=== PATIENT | female | born 1960 | race Caucasian/White ===

== ENCOUNTER 2018-12-20 06:48 | Inpatient (IN) | payer BC ==
[2018-12-20] MEDS ORDERED: NORMAL SALINE 1000 ML 1,000 ML IV ONE ×2 (08:15→11:44)
[2018-12-20] MEDS ORDERED: ONDANSETRON HCL INJ/PF 4 MG/2 ML SDV IV ONE (08:15)
--- NOTE | 2018-12-20 08:21 | ER Document Report ---
ED Medical Screen (RME) - General Chief Complaint: Diarrhea Stated Complaint: DIARRHEA Time Seen by Provider: 12/20/18 08:13 Notes: Patient is a 58-year-old female presents to the emergency department with a chief complaint of diarrhea. Patient states that she was seen by her primary care physician and placed on Flagyl and Cipro for the treatment of diverticulitis. Patient states she did not have any imaging performed on her abdomen but they were treating her like diverticulitis as she has had this in the past. Patient complaint complains of nausea. Patient states that she has over 5 episodes of diarrhea per day with a foul-smelling odor. Patient denies of blood or dark tarry stools. Patient states she has been able to eat in 3 days as this makes the diarrhea worse. Patient denies fever. Patient states that she feels like she has the flu as she has generalized body aches. TRAVEL OUTSIDE OF THE [place] IN LAST 30 DAYS: No Past Medical History - Social History Chew tobacco use (# tins/day): No Frequency of alcohol use: None Drug Abuse: None Renal/ Medical History: Denies: Hx Peritoneal Dialysis Past Surgical History: Reports: Hx Cholecystectomy Physical Exam - Vital signs Vitals: Temp Pulse Resp BP Pulse Ox 98.4 F 88 12 111/66 98 12/20/18 06:57 12/20/18 06:57 12/20/18 06:57 12/20/18 06:57 12/20/18 06:57 Interpretation: Normal - Abdominal Inspection: Normal Distension: No distension Bowel sounds: Hyperactive Tenderness: Tender - LLQ tenderness Course - Re-evaluation Re-evalutation: 12/20/18 08:20 I have greeted and performed a rapid initial assessment of this patient. A comprehensive ED assessment and evaluation of the patient, analysis of test results and completion of the medical decision making process will be conducted by additional ED providers. - Vital Signs Vital signs: Temp Pulse Resp BP Pulse Ox 98.4 F 88 12 111/66 98 12/20/18 06:57 12/20/18 06:57 12/20/18 06:57 12/20/18 06:57 12/20/18 06:57
[2018-12-20 09:22] LABS: ABSOLUTE BASOPHILS # (AUTO) 0.1 10^3/uL (0.0-0.2); ABSOLUTE EOSINOPHILS # (AUTO) 0.1 10^3/uL (0.0-0.6); ABSOLUTE LYMPHOCYTES (AUTO) 1.6 10^3/uL (0.5-4.7); ABSOLUTE MONOCYTES (AUTO) 0.9 10^3/uL (0.1-1.4); ABSOLUTE NEUT (AUTO) 13.6 10^3/uL (1.7-8.2); BASOPHILS % (AUTO) 0.5 % (0-2); EOSINOPHILS % (AUTO) 0.7 % (0-6); HEMATOCRIT 39.1 % (36.0-47.0); HEMOGLOBIN 13.3 g/dL (12.0-15.5); LYMPHOCYTES % (AUTO) 9.8 % (13-45); MEAN CORPUSCULAR HEMOGLOBIN 30.8 pg (27.0-33.4); MEAN CORPUSCULAR HGB CONC 34.1 g/dL (32.0-36.0); MEAN CORPUSCULAR VOLUME 91 fl (80-97); MONOCYTES % (AUTO) 5.5 % (3-13); PLATELET COUNT 385 10^3/uL (150-450); RED BLOOD COUNT 4.33 10^6/uL (3.72-5.28); RED CELL DISTRIBUTION WIDTH 14.1 % (11.5-14.0); SEGMENTED NEUTROPHILS % (AUTO) 83.5 % (42-78); TOTAL CELLS COUNTED % (AUTO) 100 %; WHITE BLOOD COUNT 16.3 10^3/uL (4.0-10.5)
[2018-12-20] MEDS ORDERED: FENTANYL CITRATE INJ/PF 100 MCG/2 ML AMPUL IV ONE (09:23)
[2018-12-20 09:27] LABS: APPEARANCE,URINE CLEAR; BILIRUBIN,URINE NEGATIVE (NEGATIVE); COLOR,URINE YELLOW; GLUCOSE, URINE NEGATIVE (NEGATIVE); KETONES,URINE TRACE mg/dL (NEGATIVE); LEUKOCYTE ESTERASE,URINE SMALL (NEGATIVE); NITRITE,URINE NEGATIVE (NEGATIVE); PROTEIN,URINE NEGATIVE (NEGATIVE); UROBILINOGEN,URINE NEGATIVE mg/dL (<2.0)
--- NOTE | 2018-12-20 10:01 | ER Document Report ---
ED General - General Chief Complaint: Diarrhea Stated Complaint: DIARRHEA Time Seen by Provider: 12/20/18 08:13 Notes: 58-year-old lady with diverticulitis 3 weeks ago status post antibiotics presents with diarrhea. Is been getting worse for last 3 weeks and is worse when she eats. Intermittent nausea but no vomiting. Denies abdominal pain or fever. Has not been tested for C. difficile. No foreign travel. No bloody diarrhea. Also complains of a lump on her left buttock that increased in size over the last 3 days and is painful and tender and red. TRAVEL OUTSIDE OF THE [place] IN LAST 30 DAYS: No Past Medical History - Social History Smoking Status: Never Smoker Chew tobacco use (# tins/day): No Frequency of alcohol use: None Drug Abuse: None Family History: None Patient has suicidal ideation: No Patient has homicidal ideation: No Renal/ Medical History: Denies: Hx Peritoneal Dialysis Past Surgical History: Reports: Hx Cholecystectomy Review of Systems - Review of Systems Notes: REVIEW OF SYSTEMS GEN: Denies fever, chills, weight loss ENT: Denies sore throat, nasal discharge, ear pain EYES: Denies blurry vision, eye pain, discharge CV: Denies chest pain, palpitations, edema RESP: Denies cough, shortness of breath, wheezing GI: Denies abdominal pain, nausea, vomiting, diarrhea MSK: Denies joint pain/swelling, edema, SKIN: Buttocks swelling LYMPH: Denies swollen glands/lymph nodes NEURO: Denies headache, focal weakness or numbness, dizziness PSYCH: Denies depression, suicidal or homicidal ideation PHYSICAL EXAMINATION General: No acute distress, well-nourished Head: Atraumatic, normocephalic ENT: Mouth normal, oropharynx moist, no exudates or tonsillar enlargement Eyes: Conjunctiva normal, pupils equal, lids normal Neck: No JVD, supple, no guarding CVS: Normal rate, regular rhythm, no murmurs Resp: No resp distress, equal and normal breath sounds bilaterally GI: Nondistended, soft, no tenderness to palpation, no rebound or guarding. Redness swelling fluctuance and tenderness along the left gluteal ridge ending about 4 7 m from the anus. Under. Ext: No deformities, no edema, normal range of motion in upper and lower ext Back: No CVA or midline TTP Skin: No rash, warm Lymphatic: No lymphadeopathy noted Neuro: Awake, alert. Face symmetric. GCS 15. Physical Exam - Vital signs Vitals: Temp Pulse Resp BP Pulse Ox 98.4 F 88 12 111/66 98 12/20/18 06:57 12/20/18 06:57 12/20/18 06:57 12/20/18 06:57 12/20/18 06:57 Course - Re-evaluation Re-evalutation: 12/20/18 10:00 Ongoing diarrhea and dehydrationhepatic associated versus C. difficile. We will send C. difficile and hydrate and check labs. Buttock swelling likely buttock abscess versus perirectal abscesswe will check CT to delineate. Will give pain medicine and do sepsis work-up although clinically not septic at this time. 12/20/18 11:21 Buttock abscess shows some perirectal stranding per Dr. Arthur radiology. Co nsult to Dr. Glaser for I&D. Kept n.p.o. Also has elevated white count. Getting fluids. Lites and creatinine are normal. No intra-abdominal findings that are concerning other than an incidental angiomyolipoma which she was informed of. I would like to treat her for C. difficile empirically with oral meds but am trying IV Vanco first given that she is n.p.o. and cannot produce a sample. Discussed with Dr. Joshi for admission. - Vital Signs Vital signs: Temp Pulse Resp BP Pulse Ox 98.4 F 88 12 111/66 98 12/20/18 06:57 12/20/18 06:57 12/20/18 06:57 12/20/18 06:57 12/20/18 06:57 - Laboratory Result Diagrams: 12/20/18 08:50 12/20/18 09:50 Laboratory results interpreted by me: 12/20/18 12/20/18 08:50 08:50 WBC 16.3 H RDW 14.1 H Seg Neutrophils % 83.5 H Lymphocytes % 9.8 L Absolute Neutrophils 13.6 H Urine Ketones TRACE H Urine Blood SMALL H Ur Leukocyte Esterase SMALL H - Diagnostic Test Radiology reviewed: Image reviewed, Reports reviewed Discharge - Discharge Clinical Impression: Antibiotic-associated diarrhea, Perirectal abscess Clinical Impression: (Ruled Out): Type 1 diabetes mellitus with hypoglycemia Condition: Good Disposition: ADMITTED INPATIENT Admitting Provider: Betty (Hospitalist) Unit Admitted: Medical Floor Additional Instructions: Your blood sugars been running low we did not find a direct cause or emergency because of this. 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 Please contact him today to discuss adjusting your insulin regimen. Until then, turn your pump off.
[2018-12-20 10:19] LABS: ALANINE AMINOTRANSFERASE 13 U/L (9-52); ALBUMIN 3.6 g/dL (3.5-5.0); ALKALINE PHOSPHATASE 61 U/L (38-126); ANION GAP 8 (5-19); ASPARTATE AMINO TRANSFERASE 14 U/L (14-36); BILIRUBIN,DIRECT 0.3 mg/dL (0.0-0.4); BLOOD UREA NITROGEN 8 mg/dL (7-20); CALCIUM 8.9 mg/dL (8.4-10.2); CARBON DIOXIDE 25 mmol/L (22-30); CHLORIDE 106 mmol/L (98-107); GLUCOSE 106 mg/dL (75-110); LIPASE 32.2 U/L (23-300); SODIUM 139.3 mmol/L (137-145); TOTAL PROTEIN 6.4 g/dL (6.3-8.2)
[2018-12-20] MEDS ORDERED: VANCOMYCIN HCL INJ 1000 MG VIAL IV ONE (11:18)
[2018-12-20] MEDS ORDERED: METRONIDAZOLE 500 MG/NS RTU 500 MG/100 ML RTUPB IV ONE (11:18)
--- NOTE | 2018-12-20 11:28 | RADIOLOGY REPORT (SQ) ---
EXAM DESCRIPTION: CT ABD/PELVIS WITH IV ONLY COMPLETED DATE/TIME: 12/20/2018 10:59 am REASON FOR STUDY: Copious diarrhea, buttock abscess/perirectal? COMPARISON: MRCP 08/19/2015 CT abdomen pelvis 08/16/2015 TECHNIQUE: CT scan of the abdomen and pelvis performed using helical scanning technique with dynamic intravenous contrast injection. No oral contrast. Images reviewed with lung, soft tissue, and bone windows. Reconstructed coronal and sagittal MPR images reviewed. Delayed images for evaluation of the urinary system also acquired. All images stored on PACS. All CT scanners at this facility use dose modulation, iterative reconstruction, and/or weight based d osing when appropriate to reduce radiation dose to as low as reasonably achievable (ALARA). [facility]: Dose Right [facility]: CareDose [facility]: Dose Right [facility]: Teradose 4D [facility]: eTruck CONTRAST TYPE AND DOSE: contrast/concentration: Isovue 350.00 mg/ml; Total Contrast Delivered: 72.0 ml; Total Saline Delivered: 66.0 ml RENAL FUNCTION: Creatinine 0.7 RADIATION DOSE: CT Rad equipment meets quality standard of care and radiation dose reduction techniq ues were employed. CTDIvol: 5.9 - 8.4 mGy. DLP: 803 mGy-cm.. LIMITATIONS: None. FINDINGS: There is left-sided buttock cellulitis with skin thickening and inflammation along the sub cutaneous fat and skin, at the left infra gluteal fold, extending into left perineal fat. On series series 5 image 84, a 2 cm area of increased density of the perineal fat is present just to the left of the anus, which could be an early small abscess. No significant extension of inflammation into th e deep pelvic spaces along the left ischiorectal fossa. These findings were discussed with Dr. Matt mooney in the emergency room. LOWER CHEST: No significant findings. No nodules or infiltrates. LIVER: Normal size. No masses. No dilated ducts. SPLEEN: Normal size. No focal lesions. PANCREAS: No masses. No significant calcifications. No adjacent inflammation or peripancreatic fluid collections. Pancreatic duct not dilated. GALLBLADDER: Surgically absent ADRENAL GLANDS: Right adrenal gland unremarkable. Left-sided 5 x 3.5 cm adrenal mass containing fat and calcifications likely in angio myelolipoma. This is slightly increased in size compared to 2016 where it measured 4.7 x 3.3 cm in size. RIGHT KIDNEY AND URETER: No solid masses. No significant calcifications. No hydronephrosis or hyd roureter. LEFT KIDNEY AND URETER: No solid masses. No significant calcifications. No hydronephrosis or hydr oureter. AORTA AND VESSELS: No aneurysm. No dissection. Renal arteries, SMA, celiac without stenosis. RETROPERITONEUM: No retroperitoneal adenopathy, hemorrhage or masses. BOWEL AND PERITONEAL CAVITY: No oral contrast. No CT evidence of bowel obstruction or free intraperi toneal air or fluid. APPENDIX: Normal appendix axial images 42-47 PELVIS: No mass. No free fluid. Normal bladder. Normal size uterus and ovaries ABDOMINAL WALL: No masses. No hernias. BONES: No significant or acute findings. OTHER: No other significant finding. IMPRESSION: Left gluteal cellulitis with 2 cm focus of inflammation/infection along the left perirec carmen region. 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
[2018-12-20] MEDS ORDERED: DEXTROSE 40% GEL 15 GM TUBE PO PRN ×2 (11:55)
[2018-12-20] MEDS ORDERED: DEXTROSE 50%-WATER 25 GM/50 ML DISP.SYRIN IV PRN ×2 (11:55)
[2018-12-20] MEDS ORDERED: GLUCAGON,HUMAN RECOMB 1 MG INJ IM PRN (11:55)
--- NOTE | 2018-12-20 11:59 | PDOC CONSULTATION ---
Consultation Consult Date: 12/20/18 Provider Consulted: LONG WHITMORE Consult reason:: Cellulitis left buttock History of Present Illness Admission Date/PCP: 12/20/18 11:26 History of Present Illness: LISA ARELLANO is a 58 year old female c/o left buttock pains 2 days ago. Denies fever/chills. History of intermittent LLQ pains and given antibiotics by PMD 3 weeks ago whichich she completed last week. Now has diarrhea. Being work-up for C-Diff. Past Surgical History Past Surgical History: Reports: Cholecystectomy Social History Smoking Status: Never Smoker Family History Family History: None Parental Family History Reviewed: Yes Children Family History Reviewed: No Sibling(s) Family History Reviewed.: No Review of Systems Constitutional: PRESENT: as per HPI Physical Exam Vital Signs: Temp Pulse Resp BP Pulse Ox 98.4 F 88 12 111/66 98 12/20/18 06:57 12/20/18 06:57 12/20/18 06:57 12/20/18 06:57 12/20/18 06:57 Intake & Output 12/19/18 12/20/18 12/21/18 06:59 06:59 06:59 Weight 63.5 kg General appearance: PRESENT: mild distress Head exam: PRESENT: atraumatic Eye exam: PRESENT: conjunctiva pink Mouth exam: PRESENT: moist Neck exam: PRESENT: full ROM Respiratory exam: PRESENT: clear to auscultation jimena Cardiovascular exam: PRESENT: RRR Pulses: PRESENT: normal radial pulses Vascular exam: PRESENT: normal capillary refill GI/Abdominal exam: PRESENT: soft, tenderness - mild tenderness LLQ Rectal exam: PRESENT: deferred, tenderness - reddish tender swelling left inner buttock area. no fluctuation Has a skin mole left buttock about 1.5 cm in diameter non tender and soft. Extremities exam: PRESENT: full ROM Musculoskeletal exam: PRESENT: ambulatory Neurological exam: PRESENT: alert, oriented to person, oriented to place, oriented to time, oriented to situation Psychiatric exam: PRESENT: anxious Skin exam: PRESENT: normal color, warm Results Laboratory Results: 12/20/18 08:50 12/20/18 09:50 12/20/18 12/20/18 12/20/18 08:50 08:50 08:50 WBC 16.3 H RBC 4.33 Hgb 13.3 Hct 39.1 MCV 91 MCH 30.8 MCHC 34.1 RDW 14.1 H Plt Count 385 Seg Neutrophils % 83.5 H Lymphocytes % 9.8 L Monocytes % 5.5 Eosinophils % 0.7 Basophils % 0.5 Absolute Neutrophils 13.6 H Absolute Lymphocytes 1.6 Absolute Monocytes 0.9 Absolute Eosinophils 0.1 Absolute Basophils 0.1 Sodium Cancelled Potassium Cancelled Chloride Cancelled Carbon Dioxide Cancelled Anion Gap Cancelled BUN Cancelled Creatinine Cancelled Est GFR ( Amer) Cancelled Est GFR (Non-Af Amer) Cancelled Glucose Cancelled Calcium Cancelled Total Bilirubin Cancelled AST Cancelled ALT Cancelled Alkaline Phosphatase Cancelled Total Protein Cancelled Albumin Cancelled Lipase Cancelled Urine Color YELLOW Urine Appearance CLEAR Urine pH 6.0 Ur Specific [place] 1.010 Urine Protein NEGATIVE Urine Glucose (UA) NEGATIVE Urine Ketones TRACE H Urine Blood SMALL H Urine Nitrite NEGATIVE Ur Leukocyte Esterase SMALL H Urine WBC (Auto) 7 Urine RBC (Auto) 4 12/20/18 09:50 WBC RBC Hgb Hct MCV MCH MCHC RDW Plt Count Seg Neutrophils % Lymphocytes % Monocytes % Eosinophils % Basophils % Absolute Neutrophils Absolute Lymphocytes Absolute Monocytes Absolute Eosinophils Absolute Basophils Sodium 139.3 Potassium 4.0 Chloride 106 Carbon Dioxide 25 Anion Gap 8 BUN 8 Creatinine 0.72 Est GFR ( Amer) > 60 Est GFR (Non-Af Amer) > 60 Glucose 106 Calcium 8.9 Total Bilirubin 1.0 AST 14 ALT 13 Alkaline Phosphatase 61 Total Protein 6.4 Albumin 3.6 Lipase 32.2 Urine Color Urine Appearance Urine pH Ur Specific [place] Urine Protein Urine Glucose (UA) Urine Ketones Urine Blood Urine Nitrite Ur Leukocyte Esterase Urine WBC (Auto) Urine RBC (Auto) Impressions: Abdomen/Pelvis CT 12/20/18 09:23 IMPRESSION: Left gluteal cellulitis with 2 cm focus of inflammation/infection along the left perirectal region. 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 Keep NPO after midnight
[2018-12-20] MEDS ORDERED: VANCOMYCIN HCL 0 MG in DEXTROSE 5%-WATER 250 ML IV NR (12:00)
--- NOTE | 2018-12-20 12:48 | PDOC H&P ---
History of Present Illness Admission Date/PCP: 12/20/18 11:26 Patient complains of: diarrhea History of Present Illness: LISA ARELLANO is a 58 year old female with no significant past medical history aside from a history of depression and history of diverticulitis a few years ago who presented with persistent diarrhea. Patient says that she has been having watery stools in the past 3 weeks now. She says the stools are watery to mucoid, nonbloody. She says she has been having 4-5 episodes a day. She says they have been worsening in the past 3 days. She also complains of associated crampy abdominal pain. She says she had some nausea and a few episodes of vomiting on the first week but has not had any fever. She says she has been having poor oral intake in the past 2 days. She denies a prior history of C. difficile. Denies recent antibiotic use. She also reports reports that 2 days ago, she noted a tenderness on the left buttock which is been increasingly tender. In the ER, CT of the abdomen pelvis was unremarkable for a left gluteal cellulitis with a possible small early abscess. Surgery was also evaluated the patient and is planning to drain this tomorrow. Past Surgical History Past Surgical History: Reports: Cholecystectomy Social History Smoking Status: Never Smoker Family History Family History: None Parental Family History Reviewed: Yes - No premature CAD Children Family History Reviewed: No Sibling(s) Family History Reviewed.: No Medication/Allergy Allergies/Adverse Reactions: No Known Allergies Allergy (Verified 12/20/18 12:21) Review of Systems All systems: reviewed and no additional remarkable complaints except as stated - As mentioned in HPI Physical Exam Vital Signs: Temp Pulse Resp BP Pulse Ox 98.4 F 88 12 111/66 98 12/20/18 06:57 12/20/18 06:57 12/20/18 06:57 12/20/18 06:57 12/20/18 06:57 Intake & Output 12/19/18 12/20/18 12/21/18 06:59 06:59 06:59 Weight 139 lb 15.896 oz General appearance: PRESENT: no acute distress, well-developed, well-nourished Head exam: PRESENT: atraumatic, normocephalic Eye exam: PRESENT: conjunctiva pink, EOMI, PERRLA. ABSENT: scleral icterus Ear exam: PRESENT: normal external ear exam Mouth exam: PRESENT: moist, tongue midline Neck exam: ABSENT: carotid bruit, JVD, lymphadenopathy, thyromegaly Respiratory exam: PRESENT: clear to auscultation jimena. ABSENT: rales, rhonchi, wheezes Cardiovascular exam: PRESENT: RRR. ABSENT: diastolic murmur, rubs, systolic murmur Pulses: PRESENT: normal dorsalis pedis pul GI/Abdominal exam: PRESENT: normal bowel sounds, soft. ABSENT: distended, guarding, mass, organolmegaly, rebound, tenderness Rectal exam: PRESENT: deferred, other - Note of erythematous and tender confl uent in the left gluteal area Extremities exam: PRESENT: full ROM. ABSENT: calf tenderness, clubbing, pedal edema Neurological exam: PRESENT: alert, awake, oriented to person, oriented to place, oriented to time, oriented to situation, CN II-XII grossly intact. ABSENT: motor sensory deficit Results Laboratory Results: 12/20/18 08:50 12/20/18 09:50 12/20/18 12/20/18 12/20/18 08:50 08:50 08:50 WBC 16.3 H RBC 4.33 Hgb 13.3 Hct 39.1 MCV 91 MCH 30.8 MCHC 34.1 RDW 14.1 H Plt Count 385 Seg Neutrophils % 83.5 H Lymphocytes % 9.8 L Monocytes % 5.5 Eosinophils % 0.7 Basophils % 0.5 Absolute Neutrophils 13.6 H Absolute Lymphocytes 1.6 Absolute Monocytes 0.9 Absolute Eosinophils 0.1 Absolute Basophils 0.1 Sodium Cancelled Potassium Cancelled Chloride Cancelled Carbon Dioxide Cancelled Anion Gap Cancelled BUN Cancelled Creatinine Cancelled Est GFR ( Amer) Cancelled Est GFR (Non-Af Amer) Cancelled Glucose Cancelled Calcium Cancelled Total Bilirubin Cancelled AST Cancelled ALT Cancelled Alkaline Phosphatase Cancelled Total Protein Cancelled Albumin Cancelled Lipase Cancelled Urine Color YELLOW Urine Appearance CLEAR Urine pH 6.0 Ur Specific [place] 1.010 Urine Protein NEGATIVE Urine Glucose (UA) NEGATIVE Urine Ketones TRACE H Urine Blood SMALL H Urine Nitrite NEGATIVE Ur Leukocyte Esterase SMALL H Urine WBC (Auto) 7 Urine RBC (Auto) 4 12/20/18 09:50 WBC RBC Hgb Hct MCV MCH MCHC RDW Plt Count Seg Neutrophils % Lymphocytes % Monocytes % Eosinophils % Basophils % Absolute Neutrophils Absolute Lymphocytes Absolute Monocytes Absolute Eosinophils Absolute Basophils Sodium 139.3 Potassium 4.0 Chloride 106 Carbon Dioxide 25 Anion Gap 8 BUN 8 Creatinine 0.72 Est GFR ( Amer) > 60 Est GFR (Non-Af Amer) > 60 Glucose 106 Calcium 8.9 Total Bilirubin 1.0 AST 14 ALT 13 Alkaline Phosphatase 61 Total Protein 6.4 Albumin 3.6 Lipase 32.2 Urine Color Urine Appearance Urine pH Ur Specific [place] Urine Protein Urine Glucose (UA) Urine Ketones Urine Blood Urine Nitrite Ur Leukocyte Esterase Urine WBC (Auto) Urine RBC (Auto) Impressions: Abdomen/Pelvis CT 12/20/18 09:23 IMPRESSION: Left gluteal cellulitis with 2 cm focus of inflammation/infection along the left perirectal region. 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 This has been going on for 3 weeks now. Will send out for C. difficile testing. Also send out for stool WBC and Gram stain and culture. She has received a liter of fluid bolus in the ER. We will give another bolus and switch to normal saline at 125 cc/h. (2) Cellulitis, gluteal, left Is this a current diagnosis for this admission?: Yes Plan: Start IV vancomycin. Wound cultures. Surgery has plan to proceed with I&D tomorrow morning. N.p.o. postmidnight. (3) Depression Is this a current diagnosis for this admission?: Yes Plan: Resume Paxil once verified. - Time Time Spent with patient: 25-34 minutes
--- NOTE | 2018-12-20 12:50 | ADVANCED CARE ---
- Diagnosis (1) Diarrhea Diagnosis Current: Yes (2) Cellulitis, gluteal, left Diagnosis Current: Yes (3) Depression Diagnosis Current: Yes Resuscitation Status: Full Code Discussion: Patient says that she is a full code and prefers chest compressions, defibrillation and mechanical ventilation if the need arises. When asked about her to DPOA, she says that she is estranged to her family due to multiple issues and does not have a DPOA. She does say that if she is unable to make decisions for herself, she would rather have her brother, Damir in [place] be her medical surrogate decision-maker.
[2018-12-20] MEDS ORDERED: PAROXETINE HCL 20 MG TABLET PO ONE (14:00)
[2018-12-20] MEDS ORDERED: ACETAMINOPHEN 325 MG TABLET PO PRN (16:58)
[2018-12-20] MEDS: NORMAL SALINE 1000 ML 1,000 ML IV PRN (17:33)
[2018-12-20] MEDS: PAROXETINE HCL 20 MG TABLET PO SCH (21:16)
[2018-12-20] MEDS: HEPARIN SOD (PORCINE) 5,000 UNIT/ML 1 ML SYRINGE SUBCUT SCH (21:16)
[2018-12-21] MEDS: NORMAL SALINE 1000 ML 1,000 ML IV PRN ×2 (02:04→22:40)
[2018-12-21] MEDS: HEPARIN SOD (PORCINE) 5,000 UNIT/ML 1 ML SYRINGE SUBCUT SCH ×2 (09:55→22:05)
--- NOTE | 2018-12-21 11:02 | PDOC PROGRESS REPORT ---
Subjective Progress Note for:: 12/21/18 Subjective:: This is a 58 year old female with no significant past medical history aside from a history of depression and history of diverticulitis a few years ago who presented with persistent diarrhea. She was admitted for persistemt diarrhea and was also found to have a left gluteal cellulitis with a possible small early abscess. No acute event overnight. This morning she says she had 3 episodes of loose stools. Abdominal pain has improved. She is going for drainage of a possible small left gluteal abscess today. Reason For Visit: PERSISTENT DIARRHEA,GLUTEAL CELLULITIS Physical Exam Vital Signs: Temp Pulse Resp BP Pulse Ox 98.2 F 49 L 18 113/62 98 12/21/18 07:43 12/21/18 07:43 12/21/18 07:43 12/21/18 07:43 12/21/18 07:43 Intake & Output 12/20/18 12/21/18 12/22/18 06:59 06:59 06:59 Intake Total 3660 Balance 3660 Weight 139 lb 15.896 oz 148 lb 5.938 oz General appearance: PRESENT: no acute distress, well-developed, well-nourished Head exam: PRESENT: atraumatic, normocephalic Eye exam: PRESENT: conjunctiva pink, EOMI, PERRLA. ABSENT: scleral icterus Ear exam: PRESENT: normal external ear exam Mouth exam: PRESENT: moist, tongue midline Neck exam: ABSENT: carotid bruit, JVD, lymphadenopathy, thyromegaly Respiratory exam: PRESENT: clear to auscultation jimena. ABSENT: rales, rhonchi, wheezes Cardiovascular exam: PRESENT: RRR. ABSENT: diastolic murmur, rubs, systolic murmur Pulses: PRESENT: normal dorsalis pedis pul GI/Abdominal exam: PRESENT: normal bowel sounds, soft. ABSENT: distended, guarding, mass, organolmegaly, rebound, tenderness Rectal exam: PRESENT: deferred Extremities exam: PRESENT: full ROM. ABSENT: calf tenderness, clubbing, pedal edema Neurological exam: PRESENT: alert, awake, oriented to person, oriented to place, oriented to time, oriented to situation, CN II-XII grossly intact. ABSENT: motor sensory deficit Results Laboratory Results: 12/20/18 08:50 12/20/18 09:50 12/20/18 16:09 Stool for White Cells NO WBCs SEEN Impressions: Abdomen/Pelvis CT 12/20/18 09:23 IMPRESSION: Left gluteal cellulitis with 2 cm focus of inflammation/infection along the left perirectal region. 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 This has been going on for 3 weeks now. Will send out for C. difficile testing. Also send out for stool WBC and Gram stain and culture. She has received a liter of fluid bolus in the ER. We will give another bolus and switch to normal saline at 125 cc/h. 12/21: She had 3 episodes of loose stools overnight. C. difficile was negative. Stool culture pending. (2) Cellulitis, gluteal, left Is this a current diagnosis for this admission?: Yes Plan: Continue IV vancomycin. She is going for I&D today. (3) Depression Is this a current diagnosis for this admission?: Yes Plan: Stable. Continue Paxil. - Time Time Spent with patient: 15-24 minutes
--- NOTE | 2018-12-21 11:03 | PDOC PROGRESS REPORT ---
Subjective Progress Note for:: 12/21/18 Reason For Visit: PERSISTENT DIARRHEA,GLUTEAL CELLULITIS Physical Exam Vital Signs: Temp Pulse Resp BP Pulse Ox 98.2 F 49 L 18 113/62 98 12/21/18 07:43 12/21/18 07:43 12/21/18 07:43 12/21/18 07:43 12/21/18 07:43 Intake & Output 12/20/18 12/21/18 12/22/18 06:59 06:59 06:59 Intake Total 3660 Balance 3660 Weight 63.5 kg 67.3 kg General appearance: PRESENT: no acute distress, cooperative Respiratory exam: PRESENT: clear to auscultation jimena. ABSENT: chest wall tenderness Cardiovascular exam: PRESENT: RRR Skin exam: PRESENT: other - Approximately 4 cm abscess to the left buttock. It is erythematous, with induration and purulent drainage. Results Laboratory Results: 12/20/18 08:50 12/20/18 09:50 12/20/18 16:09 Stool for White Cells NO WBCs SEEN Impressions: Abdomen/Pelvis CT 12/20/18 09:23 IMPRESSION: Left gluteal cellulitis with 2 cm focus of inflammation/infection along the left perirectal region. 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 It is erythematous and tender. It is draining a small amount of purulent material. I recommended incision and drainage in the operating room today. The patient has agreed to this. Risks/benefits discussed, informed consent obtained, and all questions answered.
[2018-12-21] MEDS ORDERED: FENTANYL CITRATE INJ/PF 100 MCG/2 ML AMPUL ONE (11:04)
[2018-12-21] MEDS ORDERED: MIDAZOLAM 2 MG/2 ML INJ ONE (11:04)
[2018-12-21] MEDS ORDERED: PROPOFOL INJ 200 MG/20 ML VIAL IV ONE (11:04)
[2018-12-21] MEDS ORDERED: MORPHINE SULFATE 10 MG/ML INJ ONE (11:04)
[2018-12-21] MEDS ORDERED: BUPIVACAINE HCL 0.25 % INJ/PF (2.5 MG/1 ML) 30 ML VIAL ONE (11:12)
[2018-12-21] MEDS ORDERED: LIDOCAINE 1% INJ-PF (10 MG/ML) 30 ML SDV ONE (11:12)
[2018-12-21] MEDS ORDERED: PROMETHAZINE HCL INJ 25 MG/1 ML VIAL IV PRN ×2 (11:33)
[2018-12-21] MEDS ORDERED: MORPHINE SULFATE 10 MG/ML INJ IV PRN (11:33)
[2018-12-21] MEDS ORDERED: FENTANYL CITRATE INJ/PF 100 MCG/2 ML AMPUL IV PRN ×3 (11:33)
[2018-12-21] MEDS ORDERED: DIPHENHYDRAMINE HCL 50 MG/ML VIAL IV PRN (11:33)
--- NOTE | 2018-12-21 11:59 | Operative Report ---
Nonrecallable Operative Report DATE OF SURGERY: 12/21/18 PREOPERATIVE DIAGNOSIS: Left buttock abscess POSTOPERATIVE DIAGNOSIS: Same as above OPERATION: 1. Incision and drainage of 4 cm left buttock abscess. 2. Debridement of nonviable skin and fatty soft tissue, sharply and excisionally (3 x 1 cm area). SURGEON: TESSY OLIVEIRA ANESTHESIA: LMAC TISSUE REMOVED OR ALTERED: Wound culture COMPLICATIONS: None apparent ESTIMATED BLOOD LOSS: Minimal PROCEDURE: Drains/implants: 4 x 4 soaked in Betadine. Procedure in detail: After informed consent was obtained, the patient was brought to the operating room and laid in the right lateral decubitus position. The left buttock was prepped and draped in a normal sterile fashion. There was an open area that was actively draining purulent material. This was probed and found to track laterally. The abscess was then laid open. A culture was taken of the deep tissues. There was marginal/necrotic appearing skin and fatty soft tissue in the midportion of the abscess. This was debrided away sharply and excisionally. There was a large cavity with the significant amount of purulent material. This was curetted and irrigated until clear. The wound was then packed with a 4 x 4 soaked in gauze. A dressing was placed, and the procedure was concluded. All sponge, instrument, and needle counts were correct x2. Condition: Stable.
[2018-12-21] MEDS: VANCOMYCIN HCL 750 MG in DEXTROSE 5%-WATER 250 ML IV SCH ×2 (12:53→22:40)
[2018-12-21] MEDS: HYDROCODONE/ACETAMINOPHEN 5-325 MG TABLET PO PRN ×3 (13:24→22:41)
[2018-12-21 15:31] LABS: ABSOLUTE BASOPHILS # (AUTO) 0.1 10^3/uL (0.0-0.2); ABSOLUTE EOSINOPHILS # (AUTO) 0.6 10^3/uL (0.0-0.6); ABSOLUTE LYMPHOCYTES (AUTO) 1.9 10^3/uL (0.5-4.7); ABSOLUTE MONOCYTES (AUTO) 0.7 10^3/uL (0.1-1.4); ABSOLUTE NEUT (AUTO) 6.6 10^3/uL (1.7-8.2); BASOPHILS % (AUTO) 0.7 % (0-2); HEMATOCRIT 31.1 % (36.0-47.0); LYMPHOCYTES % (AUTO) 19.3 % (13-45); MEAN CORPUSCULAR VOLUME 91 fl (80-97); MONOCYTES % (AUTO) 6.7 % (3-13); PLATELET COUNT 253 10^3/uL (150-450); RED BLOOD COUNT 3.41 10^6/uL (3.72-5.28); RED CELL DISTRIBUTION WIDTH 13.7 % (11.5-14.0); SEGMENTED NEUTROPHILS % (AUTO) 67.3 % (42-78); TOTAL CELLS COUNTED % (AUTO) 100 %; WHITE BLOOD COUNT 9.9 10^3/uL (4.0-10.5)
[2018-12-21 15:33] LABS: HEMOGLOBIN 10.6 g/dL (12.0-15.5)
[2018-12-21] MEDS ORDERED: ONDANSETRON HCL INJ/PF 4 MG/2 ML SDV IV PRN (15:41)
[2018-12-21] MEDS: PAROXETINE HCL 20 MG TABLET PO SCH (21:56)
[2018-12-22] MEDS: HYDROCODONE/ACETAMINOPHEN 5-325 MG TABLET PO PRN ×4 (02:43→22:24)
[2018-12-22] MEDS: HEPARIN SOD (PORCINE) 5,000 UNIT/ML 1 ML SYRINGE SUBCUT SCH ×2 (09:33→22:18)
[2018-12-22] MEDS: VANCOMYCIN HCL 750 MG in DEXTROSE 5%-WATER 250 ML IV SCH ×2 (09:41→22:24)
[2018-12-22 10:28] LABS: ABSOLUTE EOSINOPHILS # (AUTO) 0.6 10^3/uL (0.0-0.6); ABSOLUTE LYMPHOCYTES (AUTO) 1.7 10^3/uL (0.5-4.7); ABSOLUTE MONOCYTES (AUTO) 0.7 10^3/uL (0.1-1.4); ABSOLUTE NEUT (AUTO) 6.1 10^3/uL (1.7-8.2); BASOPHILS % (AUTO) 0.5 % (0-2); EOSINOPHILS % (AUTO) 6.6 % (0-6); HEMATOCRIT 31.8 % (36.0-47.0); HEMOGLOBIN 10.8 g/dL (12.0-15.5); LYMPHOCYTES % (AUTO) 18.4 % (13-45); MEAN CORPUSCULAR HEMOGLOBIN 30.7 pg (27.0-33.4); MEAN CORPUSCULAR HGB CONC 34.1 g/dL (32.0-36.0); MEAN CORPUSCULAR VOLUME 90 fl (80-97); MONOCYTES % (AUTO) 7.7 % (3-13); PLATELET COUNT 277 10^3/uL (150-450); RED BLOOD COUNT 3.52 10^6/uL (3.72-5.28); RED CELL DISTRIBUTION WIDTH 13.9 % (11.5-14.0); SEGMENTED NEUTROPHILS % (AUTO) 66.8 % (42-78); TOTAL CELLS COUNTED % (AUTO) 100 %; WHITE BLOOD COUNT 9.1 10^3/uL (4.0-10.5)
[2018-12-22 10:44] LABS: BLOOD UREA NITROGEN 3 mg/dL (7-20); CALCIUM 8.7 mg/dL (8.4-10.2); CARBON DIOXIDE 25 mmol/L (22-30); CHLORIDE 111 mmol/L (98-107); GLUCOSE 87 mg/dL (75-110); POTASSIUM 3.5 mmol/L (3.6-5.0); SODIUM 139.9 mmol/L (137-145)
[2018-12-22 10:48] LABS: ANION GAP 4 (5-19)
--- NOTE | 2018-12-22 11:37 | PDOC PROGRESS REPORT ---
Subjective Progress Note for:: 12/22/18 Subjective:: This is a 58 year old female with no significant past medical history aside from a history of depression and history of diverticulitis a few years ago who presented with persistent diarrhea. She was admitted for persistemt diarrhea and was also found to have a left gluteal cellulitis with a possible small early abscess. 12/21: This morning she says she had 3 episodes of loose stools. Abdominal pain has improved. She is going for drainage of a possible small left gluteal abscess today. 12/22: No acute event overnight. She underwent incision and drainage of her left gluteal abscess yesterday. She says she feels better today. She has not had a bowel movement yet this morning. Stool and wound cultures pending. Reason For Visit: PERSISTENT DIARRHEA,GLUTEAL CELLULITIS Physical Exam Vital Signs: Temp Pulse Resp BP Pulse Ox 98.0 F 50 L 16 100/62 96 12/22/18 08:00 12/22/18 08:00 12/22/18 08:00 12/22/18 08:00 12/22/18 09:25 Intake & Output 12/21/18 12/22/18 12/23/18 06:59 06:59 06:59 Intake Total 3660 2000 Output Total 505 Balance 3660 1495 Weight 148 lb 5.938 oz 149 lb 4.047 oz General appearance: PRESENT: no acute distress, well-developed, well-nourished Head exam: PRESENT: atraumatic, normocephalic Eye exam: PRESENT: conjunctiva pink, EOMI, PERRLA. ABSENT: scleral icterus Ear exam: PRESENT: normal external ear exam Mouth exam: PRESENT: moist, tongue midline Neck exam: ABSENT: carotid bruit, JVD, lymphadenopathy, thyromegaly Respiratory exam: PRESENT: clear to auscultation jimena. ABSENT: rales, rhonchi, wheezes Cardiovascular exam: PRESENT: RRR. ABSENT: diastolic murmur, rubs, systolic murmur Pulses: PRESENT: normal dorsalis pedis pul GI/Abdominal exam: PRESENT: normal bowel sounds, soft. ABSENT: distended, guarding, mass, organolmegaly, rebound, tenderness Rectal exam: PRESENT: deferred, other - dressing in place Extremities exam: PRESENT: full ROM. ABSENT: calf tenderness, clubbing, pedal edema Neurological exam: PRESENT: alert, awake, oriented to person, oriented to place, oriented to time, oriented to situation, CN II-XII grossly intact. ABSENT: motor sensory deficit Results Laboratory Results: 12/22/18 10:04 12/22/18 10:04 12/21/18 12/22/18 12/22/18 15:05 10:04 10:04 WBC 9.9 9.1 RBC 3.41 L 3.52 L Hgb 10.6 L D 10.8 L Hct 31.1 L 31.8 L MCV 91 90 MCH 31.0 30.7 MCHC 34.0 34.1 RDW 13.7 13.9 Plt Count 253 277 Seg Neutrophils % 67.3 66.8 Lymphocytes % 19.3 18.4 Monocytes % 6.7 7.7 Eosinophils % 6.0 6.6 H Basophils % 0.7 0.5 Absolute Neutrophils 6.6 6.1 Absolute Lymphocytes 1.9 1.7 Absolute Monocytes 0.7 0.7 Absolute Eosinophils 0.6 0.6 Absolute Basophils 0.1 0.0 Sodium 139.9 Potassium 3.5 L Chloride 111 H Carbon Dioxide 25 Anion Gap 4 L BUN 3 L Creatinine 0.62 Est GFR ( Amer) > 60 Est GFR (Non-Af Amer) > 60 Glucose 87 Calcium 8.7 Impressions: Abdomen/Pelvis CT 12/20/18 09:23 IMPRESSION: Left gluteal cellulitis with 2 cm focus of inflammation/infection along the left perirectal region. 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 This has been going on for 3 weeks now. Will send out for C. difficile testing. Also send out for stool WBC and Gram stain and culture. She has received a liter of fluid bolus in the ER. We will give another bolus and switch to normal saline at 125 cc/h. 12/21: She had 3 episodes of loose stools overnight. C. difficile was negative. Stool culture pending. 12/22: She has not had a bowel movement yet this morning. Stool and wound cultures pending. This appears to be acute on chronic diarrhea. Patient says that she has been having chronic diarrhea for years and is usually associated after food intake a lthough this has been worsening the past 3 weeks as mentioned. She does have history of having diarrhea from milk, ice cream and other dairy products. She does say that her chronic diarrhea is associated with food intake. Other possibilities of her chronic diarrhea is acquired/adult onset lactose intolerance or irritable bowel syndrome. If stool culture comes back negative, will recommend outpatient follow-up with GI for further work-up and recommendations. (2) Cellulitis, gluteal, left Is this a current diagnosis for this admission?: Yes Plan: Continue IV vancomycin. S/P I&D yesterday 12/21/18. Wound cultures pending. (3) Depression Is this a current diagnosis for this admission?: Yes Plan: Stable. Continue Paxil. - Time Time Spent with patient: 25-34 minutes
[2018-12-22] MEDS ORDERED: DIPHENHYDRAMINE HCL 25 MG CAPSULE PO PRN (21:58)
[2018-12-22 22:04] LABS: VANCOMYCIN,TROUGH 11.6 ug/mL (5.0-20.0)
[2018-12-22] MEDS: PAROXETINE HCL 20 MG TABLET PO SCH (22:24)
--- NOTE | 2018-12-22 23:16 | PDOC PROGRESS REPORT ---
Subjective Progress Note for:: 12/22/18 Reason For Visit: PERSISTENT DIARRHEA,GLUTEAL ABSCESS Physical Exam Vital Signs: Temp Pulse Resp BP Pulse Ox 98.6 F 48 L 17 101/53 L 97 12/22/18 20:00 12/22/18 20:00 12/22/18 20:00 12/22/18 20:00 12/22/18 20:00 Intake & Output 12/21/18 12/22/18 12/23/18 06:59 06:59 06:59 Intake Total 3660 2000 1340 Output Total 505 Balance 3660 1495 1340 Weight 67.3 kg 67.7 kg Results Laboratory Results: 12/22/18 10:04 12/22/18 21:15 12/22/18 12/22/18 12/22/18 10:04 10:04 21:15 WBC 9.1 RBC 3.52 L Hgb 10.8 L Hct 31.8 L MCV 90 MCH 30.7 MCHC 34.1 RDW 13.9 Plt Count 277 Seg Neutrophils % 66.8 Lymphocytes % 18.4 Monocytes % 7.7 Eosinophils % 6.6 H Basophils % 0.5 Absolute Neutrophils 6.1 Absolute Lymphocytes 1.7 Absolute Monocytes 0.7 Absolute Eosinophils 0.6 Absolute Basophils 0.0 Sodium 139.9 Potassium 3.5 L Chloride 111 H Carbon Dioxide 25 Anion Gap 4 L BUN 3 L Creatinine 0.62 0.63 Est GFR ( Amer) > 60 > 60 Est GFR (Non-Af Amer) > 60 > 60 Glucose 87 Calcium 8.7 Impressions: Abdomen/Pelvis CT 12/20/18 09:23 IMPRESSION: Left gluteal cellulitis with 2 cm focus of inflammation/infection along the left perirectal region. 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 The nurses have been changing the dressing. They report that it is doing well. The patient is resting currently. She denies any significant amounts of pain. I will examine the wound tomorrow. Will follow closely with you.
[2018-12-23] MEDS: HEPARIN SOD (PORCINE) 5,000 UNIT/ML 1 ML SYRINGE SUBCUT SCH (09:28)
[2018-12-23] MEDS: SULFAMETHOXAZOLE/TRIMETHOPRIM 800-160 MG TABLET PO SCH ×2 (10:29→17:14)
--- NOTE | 2018-12-23 11:46 | PDOC PROGRESS REPORT ---
Subjective Progress Note for:: 12/23/18 Reason For Visit: PERSISTENT DIARRHEA,GLUTEAL ABSCESS Physical Exam Vital Signs: Temp Pulse Resp BP Pulse Ox 98.1 F 50 L 16 114/68 97 12/23/18 07:50 12/23/18 07:50 12/23/18 07:50 12/23/18 07:50 12/23/18 07:50 Intake & Output 12/22/18 12/23/18 12/24/18 06:59 06:59 06:59 Intake Total 2000 1590 Output Total 505 Balance 1495 1590 Weight 67.7 kg 67.2 kg Results Laboratory Results: 12/22/18 10:04 12/22/18 21:15 12/22/18 21:15 Creatinine 0.63 Est GFR ( Amer) > 60 Est GFR (Non-Af Amer) > 60 12/21/18 11:33 Buttocks - Left Side Abscess Gram Stain - Final 12/21/18 11:33 Buttocks - Left Side Abscess Wound Culture - Final Mrsa (Meth Resis Staph Aureus) No Anaerobic Organisms Impressions: Abdomen/Pelvis CT 12/20/18 09:23 IMPRESSION: Left gluteal cellulitis with 2 cm focus of inflammation/infection along the left perirectal region. 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 Her pain is essentially resolved. Her wound is clean, without excessive purulence. The nurses are changing the dressing. Continue with dressing changes twice daily. The patient is okay to shower. Cultures are growing MRSA. Recommend discharge on Bactrim or clindamycin (to cover community-acquired MRSA). Follow-up at [facility] in 7 to 10 days. I will see the patient again on an as-needed basis. Please renotify with any questions or concerns.
[2018-12-23 12:40] VITALS: BP 133/74
--- NOTE | 2018-12-23 18:01 | PDOC DISCHARGE SUMMARY ---
General - Admit/Disc Date/PCP Admission Date/Primary Care Provider: 12/20/18 14:18 Discharge Date: 12/23/18 - Discharge Diagnosis (1) Diarrhea Is this a current diagnosis for this admission?: Yes (2) Cellulitis, gluteal, left Is this a current diagnosis for this admission?: Yes (3) Depression Is this a current diagnosis for this admission?: Yes - Additional Information Resuscitation Status: Full Code Prescriptions: Sulfamethoxazole/Trimethoprim [Septra-Ds 800-160 mg Tablet] 1 tab PO BID 5 Days #10 tablet Home Medications: Oxycodone HCl/Acetaminophen [Percocet 10-325 mg Tablet] 1 each PO TIDP PRN 12/20/18 Paroxetine HCl [Paxil 20 mg Tablet] 20 mg PO DAILY 12/20/18 Sulfamethoxazole/Trimethoprim [Septra-Ds 800-160 mg Tablet] 1 tab PO BID 5 Days #10 tablet 12/23/18 History of Present Illness History of Present Illness: LISA ARELLANO is a 58 year old female with no significant past medical history aside from a history of depression and history of diverticulitis a few years ago who presented with persistent diarrhea. Patient says that she has been having watery stools in the past 3 weeks now. She says the stools are watery to mucoid, nonbloody. She says she has been having 4-5 episodes a day. She says they have been worsening in the past 3 days. She also complains of associated crampy abdominal pain. She says she had some nausea and a few episodes of vomiting on the first week but has not had any fever. She says she has been having poor oral intake in the past 2 days. She denies a prior history of C. difficile. Denies recent antibiotic use. She also reports reports that 2 days ago, she noted a tenderness on the left buttock which is been increasingly tender. In the ER, CT of the abdomen pelvis was unremarkable for a left gluteal cellulitis with a possible small early abscess. Surgery was also evaluated the patient and is planning to drain this tomorrow. Hospital Course Hospital Course: Patient was admitted for acute on chronic diarrhea. She was started IV fluids. He was also started on vancomycin. She also underwent incision and drainage of her left gluteal abscess on 12/21. Cultures came back positive for MRSA. Her diarrhea did resolve on this admission. She does say that she has had chronic diarrhea and is usually associated with food. She does have history of diarrhea from milk and dairy products. She says she had a colonoscopy 3 years ago which was unremarkable. She was given follow-up with GI for further work- up. He will also be discharged on Bactrim. Physical Exam Vital Signs: Temp Pulse Resp BP Pulse Ox 98.4 F 58 L 17 133/74 H 98 12/23/18 12:04 12/23/18 12:04 12/23/18 12:04 12/23/18 12:04 12/23/18 12:04 Intake & Output 12/22/18 12/23/18 12/24/18 06:59 06:59 06:59 Intake Total 2000 1590 140 Output Total 505 Balance 1495 1590 140 Weight 149 lb 4.047 oz 148 lb 2.41 oz Results Laboratory Results: 12/22/18 10:04 12/22/18 21:15 12/22/18 21:15 Creatinine 0.63 Est GFR ( Amer) > 60 Est GFR (Non-Af Amer) > 60 12/21/18 11:33 Buttocks - Left Side Abscess Gram Stain - Final 12/21/18 11:33 Buttocks - Left Side Abscess Wound Culture - Final Mrsa (Meth Resis Staph Aureus) No Anaerobic Organisms Impressions: Abdomen/Pelvis CT 12/20/18 09:23 IMPRESSION: Left gluteal cellulitis with 2 cm focus of inflammation/infection along the left perirectal region. 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 Anticoagulant therapy for permanect/persistent/paraoxysmal Afib or Aflutter: N/A
== END 2018-12-23 17:54 | disposition home or self-care (01) | DRG 603 ==
LOC: ER 06:48 → INTOOBSV 11:26 → EH 11:26 → INTOOBSV 14:18 → OBSVTOIN 14:18 → 4N 14:34 → OBSVTOIN 12-22 14:18
PROVIDERS: ADMIT Internal Medicine; ATTEND Internal Medicine
PROC: 0H98XZX Drainage of Buttock Skin, External Approach, Diagnostic (ICD-10-PCS; principal; 2018-12-21 10:30)
DX: L02.31 Cutaneous abscess of buttock (principal); D17.79 Benign lipomatous neoplasm of other sites; K57.90 Diverticulosis of intestine, part unspecified, without perforation or abscess without bleeding; B95.62 Methicillin resistant Staphylococcus aureus infection as the cause of diseases classified elsewhere
CPT/HCPCS: 300; 36415; 74177; 80048; 80053; 80202; 81001; 82565; 82962; 83690; 85025; 87040; 87070; 87075; 87077; 87186; 87205; 87493; 89055; 96361; 96365; 96366; 96375; 99285; G0378; J2250; J2270; J2405; J2704; J3010; J3370; J3490; J7030; J7060